=== PATIENT | male | born 1955 | race Caucasian/White ===

== ENCOUNTER 2024-11-27 20:45 | Emergency (ER) | payer SELFPAY ==
[~2024-11-27] VITALS: Ht 177.8 cm; Wt 83.6 kg
[2024-11-27 20:59] VITALS: O2SAT 99
[2024-11-27 21:13] VITALS: TEMP 36.8; O2SAT 98
[2024-11-28] MEDS: IBUPROFEN 400MG TABLET PO ONE (00:30)
[2024-11-28 02:19] VITALS: BP 148/88; PULSE 90; RESP 18
[2024-11-28] MEDS: IBUPROFEN 400MG TABLET PO NR (02:19)
[2024-11-28] MEDS ORDERED: IBUP-2028 MT (03:27)
== END 2024-11-28 04:24 | disposition home or self-care (01) ==
LOC: ER 20:45
DX: M79.672 Pain in left foot (principal); M79.671 Pain in right foot; M21.42 Flat foot [pes planus] (acquired), left foot; M21.41 Flat foot [pes planus] (acquired), right foot; Z59.00 Homelessness unspecified
CPT/HCPCS: 73630; 99283